=== PATIENT | male | born 1940 | race Caucasian/White ===

== ENCOUNTER 2021-10-06 08:56 | Emergency (ER) | payer OTHER, SELFPAY ==
--- NOTE | ~2021-10-06 | XR_ITS ---
XR ribs RT 2V DATE: 10/06/2021 09:18 INDICATION: Right lower posterior rib pain following a fall 2 days ago TECHNIQUE: 3 views of right ribs COMPARISON: None FINDINGS: There is osteopenia. There is mild scoliosis and degenerative spurring of the thoracic spine. There is degenerative change of the lumbar spine as well. No right rib fracture or bone destruction is detected. IMPRESSION: No detected right rib fracture Reviewed, dictated and finalized at location B.
[2021-10-06 09:06] VITALS: BP 185/71; PULSE 45; RESP 16; TEMP 36.3; O2SAT 98
--- NOTE | 2021-10-06 09:09 | ED.BACK ---
HPI - Back Pain/Injury General Chief Complaint: Back Pain/Injury Stated Complaint: LOWER BACK PAIN Time Seen by Provider: 10/06/21 09:05 Source: patient Mode of arrival: ambulatory Limitations: no limitations History of Present Illness HPI Narrative: Mr. Finch is an 81-year-old male patient presenting to the clinic today with complaints of right-sided flank/back pain. He reports he fell on Monday and landed on a treadmill and it felt like a baseball bat hitting him in the right side of his back. He reports when he walks and goes from a sitting to a standing or standing to sitting position that he does have some spasms. Denies any difficulty breathing. Pain is worse with movement. He denies any blood in his urine. MD elicited complaint: back pain, back injury and fall Related Data Allergies Allergy/AdvReac Type Severity Reaction Status Date / Time No Known Drug Allergies Allergy Unknown Unknown Verified 10/06/21 09:01 Review of Systems Review of Systems: Pertinent positives per HPI. Patient denies any fever, chills, rash, headache, visual changes, dizziness, cough, runny nose, sore throat, shortness of breath, chest pain, palpitations, nausea, vomiting, diarrhea, constipation, abdominal pain, or any urinary issues. [facility] Past Medical History Medical History BPH (benign prostatic hyperplasia) Bradycardia CKD (chronic kidney disease) stage 3, GFR 30-59 ml/min Fatigue HLD (hyperlipidemia) Hyperglycemia Syncope and collapse Vitamin D deficiency Surgical History Surgical History History of appendectomy History of back surgery History of partial colectomy S/P TURP (status post transurethral resection of prostate) Family History Family History Father Diabetes mellitus Asthma Family history of cardiovascular disease, Onset Age: 75 Carcinoma of colon Sibling Family history of kidney disease, Onset Age: 78 Family history of lung disease, Onset Age: 78 Social History Social History Smoking status: Never smoker Alcohol intake: current Comments At the time of my signature, I reviewed and agree with the nursing past medical, surgical, social, and family history. There is no relevant family history pertinent to the patient complaint. Exam Narrative: General: Well-developed, well nourished, in no apparent distress Head: Normocephalic, atraumatic. Cardio: Regular rate and rhythm, s1 and s2 normal, no murmur appreciated. Resp: Clear to auscultation bilaterally, no rhonchi, rales, wheezing or rubs. Musculoskeletal: No deformity, no bruising or swelling noted, tender to palpation over the right flank, pain with twisting of the back, grossly normal range of motion, muscle strength strong and equal, peripheral pulse strong, no edema, no cyanosis, normal gait and station Course Course Emergency Course: Portions of this record may have been created with voice recognition software. Level of Care: Express Care Visit Vital Signs Vital signs: Vital Signs Temperature 36.3 C L 10/06/21 09:06 Pulse Rate 45 L 10/06/21 09:06 Respiratory Rate 16 10/06/21 09:06 Blood Pressure 185/71 H 10/06/21 09:06 Pulse Oximetry 98 10/06/21 09:06 Temperature 36.3 C L 10/06/21 09:06 Pulse Rate 45 L 10/06/21 09:06 Respiratory Rate 16 10/06/21 09:06 Blood Pressure 185/71 H 10/06/21 09:06 Pulse Oximetry 98 10/06/21 09:06 Vital signs reviewed MDM - Back Pain/Injury MDM Narrative Medical decision making narrative: At the time of visit patient is resting comfortably on the exam chair. X-ray was completed and was negative for any fracture of his right ribs. I suspect that the patient has a rib contusion and muscle spasms. Prescription sent for naproxen
== END 2021-10-06 09:45 | disposition home or self-care (01) ==
PROVIDERS: Emergency Provider Nurse Practitioner Family; PCP Emergency Medicine
DX: M62.838 Other muscle spasm (principal); S20.211A Contusion of right front wall of thorax, initial encounter; W19.XXXA Unspecified fall, initial encounter; N40.0 Benign prostatic hyperplasia without lower urinary tract symptoms; E78.5 Hyperlipidemia, unspecified; N18.30 Chronic kidney disease, stage 3 unspecified
CPT/HCPCS: 71100; 99213; G0463

== ENCOUNTER 2023-11-13 14:19 | Outpatient (CLI) | payer OTHER, SELFPAY ==
--- NOTE | ~2023-11-13 | XR_ITS ---
XR shoulder RT min 2V Ordering provider: Ilan Ospina MD History: . M25.511 - Pain in right shoulder, SORENESS/POPPING, NO INJUR . Comparison: None. FINDINGS: BONES: No acute fracture or dislocation. JOINT SPACES: The acromioclavicular joint shows osteoarthritic changes. The glenohumeral joint is nor mal. SOFT TISSUES: Normal. IMPRESSION: No acute osseous abnormality right shoulder. Reviewed, dictated and finalized at location A.
== END 2023-11-13 14:20 | disposition home or self-care (01) ==
LOC: ANHIMG 14:23
PROVIDERS: PCP Emergency Medicine; Visit Provider Emergency Medicine
DX: M25.511 Pain in right shoulder (principal)
CPT/HCPCS: 73030

== ENCOUNTER 2023-11-22 12:24 | Outpatient (CLI) | payer OTHER, SELFPAY ==
--- NOTE | ~2023-11-22 | MR_ITS ---
EXAMINATION: MR shoulder RT wo con DATE: 11/22/2023 13:15 INDICATION: Right shoulder pain TECHNIQUE: Magnetic resonance imaging (MRI) of the right shoulder was performed without intravenous c ontrast. Sequences included axial PD-weighted FS FSE, coronal oblique PD-weighted FS FSE, coronal obl ique T2-weighted FS FSE, sagittal PD-weighted FS FSE, and sagittal T1-weighted SE. COMPARISON: Radiograph dated 11/13/2023 FINDINGS: Coracoacromial arch: The acromion undersurface is flat in morphology (type I) with anterior downsloping. The coracoacromia l ligament is normal. Severe acromioclavicular osteoarthritis. Rotator cuff: Moderate supraspinatus tendinopathy without tear. Mild infraspinatus tendinopathy with small mild par tial-thickness tear extending 1 cm AP along the articular side of the middle facet footplate of the t endon and involving no greater than one third of the tendon thickness. The teres minor tendon is norm al. Moderate subscapularis tendinopathy. There is a tear involving the lateral margin of the lesser t uberosity footplate of the subscapularis tendon. In addition there is a split tear between the bursal side of the tendon which remains contiguous with the transverse humeral ligament and the underlying portion of the tendon attached to the lesser tuberosity. The long head of the biceps tendon is sublux ed across the medial rim of the intertubercular groove into the split tear defect which extends 1 cm medially. Normal rotator cuff muscle bulk and signal. Biceps tendon, glenoid labrum and glenohumeral cartilage: Aside from the subluxation, the long head biceps tendon is normal with no tendinopathy or tear. SLAP tear of the superior to posterosuperior glenoid labrum. Tiny marginal osteophytes extending from the base of the posterior inferior to anteroinferior labrum. There is deep chondral ulceration and withou t degenerative subchondral changes along the superomedial aspect of the humeral head. Less severe mil d partial-thickness glenoid cartilage loss with smooth chondral surface. Fluid: There is a small glenohumeral joint effusion with proportional extension of a small amount of fluid i nto the long head biceps tendon sheath. No loose osteochondral bodies. No abnormal increased fluid in the subacromial/subdeltoid bursa to suggest bursitis. Bones: 5 x 6 mm lesion with grapelike cluster of increased signal along the metaphyseal side of the physeal scar of the proximal humerus with location and appearance most consistent with a very small enchondro ma. Bone marrow signal is otherwise normal with no fracture or pathologic marrow replacing process. IMPRESSION: 1. Mild glenohumeral osteoarthritis with tear of the superior to posterosuperior glenoid labrum. 2. Moderate supraspinatus and mild infraspinatus tendinopathy with small mild partial-thickness artic ular sided tear along the middle facet footplate of the infraspinatus tendon. 3. Moderate subscapularis tendinopathy with small partial-thickness tear along the lateral margin of the lesser tuberosity footplate with small associated intrasubstance split tear. The normal long head biceps tendon is subluxed across the medial rim of the intertubercular groove and into the subscapul kamla tendon split tear defect. 4. Severe right acromioclavicular osteoarthritis. Reviewed, dictated and finalized at location B. IMPRESSION: 1. Mild glenohumeral osteoarthritis with tear of the superior to posterosuperio r glenoid labrum. 2. Moderate supraspinatus and mild infraspinatus tendinopathy with small mild p artial-thickness articular sided tear along the middle facet footplate of the i nfraspinatus tendon. 3. Moderate subscapularis tendinopathy with small partial-thickness tear along the lateral margin of the lesser tuberosity footpla
== END 2023-11-22 12:25 ==
PROVIDERS: PCP Emergency Medicine; Visit Provider Emergency Medicine
DX: M19.011 Primary osteoarthritis, right shoulder (principal); M75.51 Bursitis of right shoulder; M75.101 Unspecified rotator cuff tear or rupture of right shoulder, not specified as traumatic
CPT/HCPCS: 73221

== ENCOUNTER 2024-02-13 07:18 | Outpatient (CLI) | payer OTHER, SELFPAY ==
--- NOTE | 2024-02-13 07:28 | ECHO_ITS ---
Patient Info Name: Gilberto Finch Age: 83 years : 1940 Gender: Male Ht: 66 in Wt: 185 lbs BSA: 2.00 m2 HR: 32 bpm BP: 163 / 62 mmHg Technical Quality: Good Exam Date: 02/13/2024 7:38 AM Exam Location: Echo Lab Patient Status: Outpatient Admit Date: 02/13/2024 Staff Ordering Physician: Feng Sims DO Gyro Mechanic: Georgiana Condon RDCS Attending Provider: Feng Sims DO Referring Physician: Levi NIELSON; Exam Type: CA echo doppler color flow Study Info Indications R00.1 - Bradycardia, unspecified Complete two-dimensional, color flow and Doppler transthoracic echocardiogram is performed. Strain analysis performed. Summary 1. Complete two-dimensional, color flow and Doppler transthoracic echocardiogram is performed. 2. Left ventricular chamber dimension is normal. 3. Left ventricular systolic function is normal, estimated at 65-70%. 4. There is mild concentric increased left ventricular wall thickness. 5. The left ventricular diastolic function is grade III diastolic dysfunction. 6. E/e' 8 is minimally elevated. 7. Global longitudinal strain is normal at -18.7%. 8. Left atrial chamber dimension is moderately enlarged. 9. Right atrial chamber dimension is moderately enlarged. 10. There is mild aortic valve sclerosis. 11. There is trace aortic valve regurgitation. 12. There is moderate mitral valve regurgitation. 13. There is trace tricuspid valve regurgitation. 14. Moderate pulmonary hypertension, estimated pulmonary arterial systolic pressure is 59 mmHg. 15. There is trace pulmonic regurgitation. 16. Dilated inferior vena cava with >50% collapse upon inspiration consistent with elevated right atrial pressure, 10 mmHg. Left Ventricle E/e' 8 is minimally elevated. Global longitudinal strain is normal at -18.7%. Left ventricular chamber dimension is normal. Left ventricular systolic function is normal, estimated at 65-70%. There is mild concentric increased left ventricular wall thickness. The left ventricular diastolic function is grade III diastolic dysfunction. Right Ventricle Right ventricular systolic function is normal and with normal TAPSE 3.1 cm. Right ventricular chamber dimension is normal. Left Atria Left atrial chamber dimension is moderately enlarged. Right Atria Right atrial chamber dimension is moderately enlarged. Aortic Valve The aortic valve is trileaflet. There is mild aortic valve sclerosis. There is no aortic valve stenosis. There is trace aortic valve regurgitation. Pulmonic Valve There is trace pulmonic regurgitation. Mitral Valve There is no mitral valve stenosis. There is moderate mitral valve regurgitation. Tricuspid Valve There is trace tricuspid valve regurgitation. Moderate pulmonary hypertension, estimated pulmonary arterial systolic pressure is 59 mmHg. Pericardium/Pleural There is no pericardial effusion. Inferior Vena Cava Dilated inferior vena cava with >50% collapse upon inspiration consistent with elevated right atrial pressure, 10 mmHg. Aorta The aortic root size at the sinus of Valsalva is normal. Left Ventricular Outflow Tract Name Value Normal LVOT 2D LVOT Diameter 2.0 cm LVOT Doppler LVOT Peak Gradient 9 mmHg
== END 2024-02-13 07:19 | disposition home or self-care (01) ==
LOC: ANHCARD 07:21
PROVIDERS: PCP Emergency Medicine; Visit Provider Internal Medicine Cardiovascular Disease
DX: I50.30 Unspecified diastolic (congestive) heart failure (principal); I08.0 Rheumatic disorders of both mitral and aortic valves; I27.20 Pulmonary hypertension, unspecified; R00.1 Bradycardia, unspecified
CPT/HCPCS: 93306

== ENCOUNTER 2024-02-21 11:00 | Outpatient (RCR) | payer OTHER, SELFPAY ==
--- NOTE | 2024-01-11 09:53 | OPREHPOC ---
Outpatient Therapy Plan of Care This is a Multidisciplinary Plan of Care that may contain components documented by all disciplines (PT, OT, and ST.) PT Problem 1 PT Problem #1 Knowledge Deficit PT Goal 1 Goal *indep with HEP * correct shoulder position with exercises Target Visit 8 PT Problem 2 PT Problem #2 Pain PT Goal 1 Goal 1* decrease pain rating at worst to 4/10 2* self assessment Quick DASH rating of 10% limitation in activity 3* pt report with sleeping, no awakening due to shoulder pain Target Visit 8 PT Problem 3 PT Problem #3 Impaired Flexibility PT Goal 1 Goal increase R shoulder ROM to improve ability to perform self care activities active motion in standing 1* ER- reach to back of head, palm to back of head 2* IR - reach behind back, palm to waist Target Visit 8 PT Problem 4 PT Problem #4 Impaired Strength PT Goal 1 Goal increase strength of R shoulder, to improve use of dominant arm for home and self care activities: in standing with hand weight x 5 reps: 1* flexion to 90' with 4# 2* abduction to 90' with 4# 3* pt report using his R arm with home tasks and pain 3/10 Target Visit 8
--- NOTE | 2024-01-11 09:54 | PTOPEVAL1 ---
Assessment and note entered by Megan Lance PT Evaluation Information Assessment Status Evaluation ICD-10 Condition Codes (PT) M25.511 Onset August 2023 Subjective Information gradual increase in pain; no trauma or injury to shoulder; is R handed; diagnosis of small rotator cuff tear, non surgical ; took steroids- helped; pain is less than initially was Activity: go to circuit board repair technician 2x/wk for exercises; able to do everything at home, started using L arm more, but able to use R arm; Reported Pain Level Pain Score Self Report Additional Pain Score Comments pain range in the past week 0-8/10; increase pain: in AM when first wake up; reach to turn on lamp; move arm backwards; reach to passenger seat of car, reach up decrease pain: resting, tylenol, ice problems getting arm comfortable to sleep- awaken due to pain 1-2x/night Assessment PT Clinical Summary Gilberto has the diagnosis of R shoulder pain. He is R hand dominant. Self assessment Quick DASH rating of 16% limitation in activity level. He has continued to be active, using R arm and going to do exercises with a circuit board repair technician. Pain is increased with reaching up and out to the side, and problems getting shoulder comfortable with sleeping. With the evaluation: pain over anterior shoulder; shoulder flexion and abduction ranges are same as L, IR and ER motions are decreased and most painful for pt; also has pain with resisted biceps; rounder shoulder posture. Skilled PT services are indicated for modalities to decrease pain; therapeutic exercises to increase ROM and strength of shoulder with education for HEP and posture. Plan of Care Interventions Electrical Stimulation,Hot Pack/Cold Pack,Manual Therapy,Patient Education,Therapeutic Activities,Therapeutic Exercise,Ultrasound,Other Other Interventions otilia, HUYEN PT Services Indicated Yes Treatment Frequency and 1-2x/wk for
--- NOTE | 2024-02-21 11:36 | PTOPDC ---
Assessment and note entered by Megan Lance, PT Discharge Report Assessment Status Discharge ICD-10 Condition Codes (PT) M25.511 Onset August 2023 Subjective Information have been doing the exercises every day, 2x/day; tries to avoid lifting with R arm when it is forward; Reported Pain Level Pain Score Self Report Additional Pain Score Comments pain range in the past week 0-5/10 ache in shoulder have learned to modify how use his arm to avoid the pain--lifting with L arm and avoid movements is able to sleep through the night without pain, sometimes hurt when reach to pull up the covers; increase pain: pushing on arm when first getting out of bed decrease pain: move around and get shoulder warmed up can lie on R side with sleeping Assessment PT Clinical Summary Gilberto has received 8 PT sessions. Compared to the initial evaluation: pain from 0-8/10 to 0-5/10; self assessment from 16 to 23% limitation in activity level; improved sleeping tolerance from awakening 1-2x/ night to no awakening due to shoulder pain; is doing all of his normal home tasks, with some modification and more use of L arm; increase strength and ROM of R shoulder; education for posture and HEP. Continue to avoid irritation/pain to shoulder. active ROM in standing R shoulder: flexion 150', abduction 145', IR- reach behind back, palm to waist and ER- reach towards back of head, palm to back of head. The goals were partially met. Discharge PT--to continue with HEP and monitor pain with increased activity. Plan of Care PT Services Indicated No
== END 2024-02-21 16:31 | disposition home or self-care (01) ==
LOC: ANHPT 11:00
PROVIDERS: PCP Emergency Medicine; Visit Provider Orthopaedic Surgery
DX: M25.511 Pain in right shoulder (principal); M75.101 Unspecified rotator cuff tear or rupture of right shoulder, not specified as traumatic
CPT/HCPCS: 97014; 97110; 97140; 97161; 97530; G0283